=== PATIENT | male | born 1960 | race Two or more races ===

== ENCOUNTER 2021-11-02 12:39 | Inpatient (IN) | payer OTHER, MEDICAID ==
[2021-11-02] VITALS (7 sets, daily range): BP systolic 103–204; BP diastolic 74–106
[~2021-11-02] VITALS: Ht 165.1 cm; Wt 98.0 kg
[2021-11-02] MEDS ORDERED: ASPirin 81 mg TAB PO ONE (14:00)
[2021-11-02 14:20] LABS: Basophils # (auto) 0.1 10 ^3/uL (0-0.2); Basophils % (auto) 0.7 % (0.0-2.0); Eosinophils # (auto) 0.2 10 ^3/uL (0-0.8); Hematocrit 37.4 % (41.0-53.0); Hemoglobin 12.5 g/dL (13.5-17.5); Lymphocytes # (auto) 1.3 10 ^3/uL (0.4-5.4); Mean Corpuscular Hemoglobin 28.5 pg (28.0-32.0); Mean Corpuscular Hgb Conc. 33.3 g/dL (32.0-36.0); Mean Corpuscular Volume 85.5 fL (80.0-100.0); Monocytes # (auto) 0.5 10 ^3/uL (0-1.3); Monocytes % (auto) 5.1 % (0.0-12.0); Neutrophils % (auto) 79.2 % (37.0-80.0); Red Blood Cells 4.38 10^6/uL (4.5-5.90); Red Cell Distribution Width 14.4 % (11.8-14.3); White Blood Cell 10.1 10^3/uL (4.4-10.8)
[2021-11-02 14:42] LABS: Chloride 110 mmol/L (98-107); Potassium 4.2 mmol/L (3.5-5.1); Sodium 140 mmol/L (136-145)
[2021-11-02 14:47] LABS: Alanine Aminotransferase 29 U/L (16-61); Albumin 2.8 g/dL (3.4-5.0); Anion Gap 7 (5-15); Aspartate Aminotransferase 24 U/L (15-37); BUN/Creatinine Ratio 17.7; Blood Alcohol < 3.0 mg/dL (0-5); Blood Urea Nitrogen 28 mg/dL (7-18); Calcium 9.1 mg/dL (8.5-10.1); Carbon Dioxide 23 mmol/L (21-32); GFR African American 58 mL/min; GFR Non-African American 48 mL/min; Glucose 210 mg/dL (74-106); Total Protein 6.9 g/dL (6.4-8.2)
[2021-11-02 14:52] LABS: Alkaline Phosphatase 99 U/L (45-117); Bilirubin, Total 0.4 mg/dL (0.2-1.0)
[2021-11-02 15:12] LABS: INR 0.99 (0.9-1.15)
[2021-11-02] MEDS ORDERED: NITROGLYCERIN 0.4 MG SL TAB SL PRN (16:30)
[2021-11-02] MEDS ORDERED: MORPHINE SULFATE INJECTION 2 MG/ML SYRG IV PRN (16:30)
[2021-11-02] MEDS ORDERED: ACETAMINOPHEN 325 MG TAB PO PRN (17:30)
[2021-11-02] MEDS ORDERED: ATOR20TA50 PO (17:43)
[2021-11-02] MEDS ORDERED: LISI40TA11 PO (17:44)
[2021-11-02] MEDS ORDERED: INSU100I51 SC (17:45)
[2021-11-02] MEDS ORDERED: INSLANTI SC (17:47)
[2021-11-02] MEDS: ACCU-CHEK COMFORT CURVE STRIP VI SCH ×2 (18:06→23:04)
[2021-11-02] MEDS: InsuLIN REG 1unit/0.01ml Soln (100units/ml) SC SCH ×2 (18:07→23:04)
[2021-11-02 18:10] LABS: Urine Bacteria NONE SEEN /hpf (None Seen); Urine Blood 1+ /uL (Negative); Urine Hyaline Cast MANY /lpf (0 - 2); Urine Mucus FEW (None Seen); Urine Specific Gravity 1.024 (1.001-1.035); Urine WBC 4 /hpf (0 - 3)
[2021-11-02 18:23] LABS: Sodium Urine 22 mmol/L (40-220)
[2021-11-02 18:32] LABS: Creatinine, Urine 330 mg/dL (30.0-125.0)
[2021-11-02 19:43] LABS: Cholesterol 195 mg/dL (< 200)
[2021-11-02 19:46] LABS: HDL Cholesterol 37 mg/dL (40-59); LDL Cholesterol 131 mg/dL (< 100); Triglycerides 120 mg/dL (< 150)
[2021-11-02] MEDS: ATORVASTATIN 20 MG TAB PO SCH (21:55)
[2021-11-02] MEDS: INSULIN LANTUS (GLARGINE) 1 /0.01ml (100units/ml) SC SCH (22:00)
[2021-11-02] MEDS: SODIUM CHLORIDE 0.9% 1,000 ML IV SCH (23:04)
[2021-11-03] VITALS (23 sets, daily range): BP systolic 141–181; BP diastolic 65–100
[2021-11-03] MEDS: hydrALAZINE HCL 20 MG/ML VL IV PRN ×4 (00:04→22:04)
[2021-11-03] MEDS: InsuLIN REG 1unit/0.01ml Soln (100units/ml) SC SCH ×4 (05:18→22:49)
[2021-11-03] MEDS: ACCU-CHEK COMFORT CURVE STRIP VI SCH ×4 (05:18→22:49)
[2021-11-03 05:25] LABS: Cholesterol 183 mg/dL (< 200); HDL Cholesterol 35 mg/dL (40-59); LDL Cholesterol 119 mg/dL (< 100); Triglycerides 171 mg/dL (< 150)
[2021-11-03] MEDS: FLUTICASONE PROP NASAL SPR 0.05 % (50MCG) 16GM EACHNOSTRI SCH ×2 (07:20→19:22)
[2021-11-03 07:46] LABS: Albumin 2.8 g/dL (3.4-5.0); BUN/Creatinine Ratio 19.4; Basophils # (auto) 0.1 10 ^3/uL (0-0.2); Basophils % (auto) 0.9 % (0.0-2.0); Calcium 9.2 mg/dL (8.5-10.1); Eosinophils # (auto) 0.4 10 ^3/uL (0-0.8); Eosinophils % (auto) 3.9 % (0.0-7.0); Hemoglobin 12.8 g/dL (13.5-17.5); Lymphocytes # (auto) 1.8 10 ^3/uL (0.4-5.4); Lymphocytes % (auto) 17.3 % (10.0-50.0); Mean Corpuscular Hemoglobin 28.7 pg (28.0-32.0); Mean Corpuscular Hgb Conc. 34.5 g/dL (32.0-36.0); Mean Corpuscular Volume 83.2 fL (80.0-100.0); Monocytes # (auto) 0.6 10 ^3/uL (0-1.3); Monocytes % (auto) 6.1 % (0.0-12.0); Neutrophils # (auto) 7.3 10 ^3/uL (1.6-8.6); Neutrophils % (auto) 71.8 % (37.0-80.0); Nucleated Red Blood Cells % 0.2 %; Potassium 3.9 mmol/L (3.5-5.1); Red Blood Cells 4.45 10^6/uL (4.5-5.90); Red Cell Distribution Width 14.6 % (11.8-14.3); White Blood Cell 10.2 10^3/uL (4.4-10.8)
[2021-11-03 07:49] LABS: Bilirubin, Total 0.7 mg/dL (0.2-1.0); Total Protein 6.8 g/dL (6.4-8.2)
[2021-11-03] MEDS ORDERED: ASPirin 325 MG TAB PO SCH (10:00)
[2021-11-03] MEDS: ASPirin 81 mg TAB PO SCH (10:36)
[2021-11-03] MEDS: SODIUM CHLORIDE 0.9% 1,000 ML IV SCH (10:37)
[2021-11-03] MEDS: ATORVASTATIN 20 MG TAB PO SCH (19:22)
[2021-11-03] MEDS: INSULIN LANTUS (GLARGINE) 1 /0.01ml (100units/ml) SC SCH (22:00)
[2021-11-04] VITALS (24 sets, daily range): BP systolic 120–174; BP diastolic 55–98
[2021-11-04] MEDS: InsuLIN REG 1unit/0.01ml Soln (100units/ml) SC SCH ×3 (05:08→17:40)
[2021-11-04] MEDS: ACCU-CHEK COMFORT CURVE STRIP VI SCH ×4 (05:09→21:37)
[2021-11-04] MEDS: hydrALAZINE HCL 20 MG/ML VL IV PRN ×3 (06:33→22:29)
[2021-11-04] MEDS: ASPirin 81 mg TAB PO SCH (10:26)
[2021-11-04] MEDS: FLUTICASONE PROP NASAL SPR 0.05 % (50MCG) 16GM EACHNOSTRI SCH ×2 (10:26→22:00)
[2021-11-04] MEDS: ATORVASTATIN 20 MG TAB PO SCH (21:28)
[2021-11-04] MEDS: INSULIN LANTUS (GLARGINE) 1 /0.01ml (100units/ml) SC SCH (21:28)
[2021-11-05] VITALS (20 sets, daily range): BP systolic 118–188; BP diastolic 65–97
[2021-11-05] MEDS: InsuLIN REG 1unit/0.01ml Soln (100units/ml) SC SCH ×4 (00:18→17:35)
[2021-11-05 08:01] LABS: Basophils # (auto) 0.1 10 ^3/uL (0-0.2); Basophils % (auto) 0.6 % (0.0-2.0); Eosinophils # (auto) 0.1 10 ^3/uL (0-0.8); Hematocrit 34.3 % (41.0-53.0); Hemoglobin 11.7 g/dL (13.5-17.5); Lymphocytes # (auto) 1.3 10 ^3/uL (0.4-5.4); Lymphocytes % (auto) 10.9 % (10.0-50.0); Mean Corpuscular Hemoglobin 28.5 pg (28.0-32.0); Mean Corpuscular Volume 83.9 fL (80.0-100.0); Monocytes % (auto) 7.8 % (0.0-12.0); Neutrophils # (auto) 9.7 10 ^3/uL (1.6-8.6); Neutrophils % (auto) 79.7 % (37.0-80.0); Red Blood Cells 4.09 10^6/uL (4.5-5.90); Red Cell Distribution Width 14.3 % (11.8-14.3); White Blood Cell 12.1 10^3/uL (4.4-10.8)
[2021-11-05 08:14] LABS: Albumin 2.6 g/dL (3.4-5.0); Calcium 8.9 mg/dL (8.5-10.1); Potassium 4.1 mmol/L (3.5-5.1)
[2021-11-05 08:18] LABS: BUN/Creatinine Ratio 19.4; Bilirubin, Total 0.8 mg/dL (0.2-1.0); Total Protein 6.4 g/dL (6.4-8.2)
[2021-11-05] MEDS: ASPirin 81 mg TAB PO SCH (10:00)
[2021-11-05] MEDS: FLUTICASONE PROP NASAL SPR 0.05 % (50MCG) 16GM EACHNOSTRI SCH ×2 (11:16→23:09)
[2021-11-05] MEDS: ACCU-CHEK COMFORT CURVE STRIP VI SCH ×3 (11:44→17:35)
[2021-11-05] MEDS ORDERED: diphenhdrAMINE HCL 50 MG/1 ML VL IV ONE (12:45)
[2021-11-05] MEDS ORDERED: fentaNYL CITRATE 100 MCG/2 ML VL IV ONE ×2 (12:45→14:00)
[2021-11-05] MEDS ORDERED: LIDOCAINE VISCOUS 2% 15ML UD MT ONE (12:45)
[2021-11-05] MEDS ORDERED: MIDAZOLAM HCL 2MG/2ML 2ml VIAL (1mg/ml) IV ONE (12:45)
[2021-11-05 13:02] LABS: Folate (Folic Acid) 8.07 ng/mL (5.38-24)
[2021-11-05] MEDS ORDERED: LISINOPRIL 20 MG TAB PO ONE (13:15)
[2021-11-05] MEDS ORDERED: MIDAZOLAM HCL 2MG/2ML 2ml VIAL (1mg/ml) IM ONE (14:00)
[2021-11-05] MEDS ORDERED: LIDOCAINE VISCOUS 2% 15ML UD PO ONE (14:00)
[2021-11-05] MEDS: ATORVASTATIN 20 MG TAB PO SCH (22:32)
[2021-11-05] MEDS: INSULIN LANTUS (GLARGINE) 1 /0.01ml (100units/ml) SC SCH (22:39)
[2021-11-06 03:42] VITALS: BP 136/81
[2021-11-06 05:00] VITALS: BP 174/83
[2021-11-06] MEDS: InsuLIN REG 1unit/0.01ml Soln (100units/ml) SC SCH ×2 (06:38→10:45)
[2021-11-06] MEDS: ACCU-CHEK COMFORT CURVE STRIP VI SCH ×2 (06:38→10:44)
[2021-11-06 08:41] VITALS: BP 167/98
[2021-11-06] MEDS: FLUTICASONE PROP NASAL SPR 0.05 % (50MCG) 16GM EACHNOSTRI SCH (08:44)
[2021-11-06] MEDS: ASPirin 81 mg TAB PO SCH (08:44)
[2021-11-06] MEDS ORDERED: LISINOPRIL 20 MG TAB PO SCH (10:00)
[2021-11-06 11:15] VITALS: BP 157/85
[2021-11-06 12:37] VITALS: BP 157/85
[2021-11-06] MEDS ORDERED: METOPROLOL SUCCINATE XL 50 MG TAB PO ONE (13:30)
[2021-11-06] MEDS ORDERED: METO-6 PO (13:40)
[2021-11-06] MEDS ORDERED: ATO40T PO (13:40)
[2021-11-06] MEDS ORDERED: ASPI1CHW15 PO (13:40)
[2021-11-06 13:52] VITALS: BP 157/85
== END 2021-11-06 15:59 | disposition home health service (06) | DRG 65 ==
LOC: ER 12:39 → TELE 16:27 → DOU IN ICU 20:41 → TELE-WESTW 11-05 21:28
PROVIDERS: ADMIT Internal Medicine; ATTEND Internal Medicine Geriatric Medicine
PROC: 5A09357 Assistance with Respiratory Ventilation, Less than 24 Consecutive Hours, Continuous Positive Airway Pressure (ICD-10-PCS; 2021-11-02)
PROC: B246ZZ4 Ultrasonography of Right and Left Heart, Transesophageal (ICD-10-PCS; principal; 2021-11-05)
DX: I63.9 Cerebral infarction, unspecified (principal); E44.0 Moderate protein-calorie malnutrition; E66.9 Obesity, unspecified; G47.10 Hypersomnia, unspecified; R29.810 Facial weakness; R47.81 Slurred speech; E11.22 Type 2 diabetes mellitus with diabetic chronic kidney disease; I12.9 Hypertensive chronic kidney disease with stage 1 through stage 4 chronic kidney disease, or unspecified chronic kidney disease; N18.31 Chronic kidney disease, stage 3a; R41.3 Other amnesia; Z20.822 Contact with and (suspected) exposure to COVID-19; E78.5 Hyperlipidemia, unspecified; Z79.4 Long term (current) use of insulin; Z79.82 Long term (current) use of aspirin; Z79.899 Other long term (current) drug therapy; Z82.49 Family history of ischemic heart disease and other diseases of the circulatory system; Z83.3 Family history of diabetes mellitus; Z86.73 Personal history of transient ischemic attack (TIA), and cerebral infarction without residual deficits; Z68.34 Body mass index [BMI] 34.0-34.9, adult
CPT/HCPCS: 36415; 70450; 70551; 80053; 80061; 80320; 81001; 82570; 82607; 82746; 82962; 83036; 84300; 84443; 84484; 85025; 85610; 85730; 87081; 92610; 93005; 93306; 93312; 93886; 94660; 95819; 97116; 97163; 97530; G0378; J1815; J2250